=== PATIENT | male | born 1985 ===

== ENCOUNTER 2017-10-19 07:03 | Inpatient (IN) | payer OTHER ==
[~2017-10-19] VITALS: Ht 167.6 cm; Wt 76.7 kg
[2017-10-19] VITALS (12 sets, daily range): BP systolic 101–111; BP diastolic 52–72
[~2017-10-19 07:03] MED LIST: Dexamethasone 20mg/5ml IVP ONE; ceFAZolin sod 1 GM in NS 55 ML IVPB ONE
[2017-10-19] MEDS ORDERED: NKM (07:19)
[2017-10-19] MEDS ORDERED: LR 1000ml 1,000 ML IVLG SCH (09:23)
--- NOTE | 2017-10-19 09:25 | Anethesia Preoperative Eval ---
Anesthesia Pre-op PMH/ROS General Date of Evaluation: Oct 19, 2017 Time of Evaluation: 10:14 Anesthesiologist: Bernadette ASA Score: ASA 1 Mallampati Score Class I : Soft palate, uvula, fauces, pillars visible Class II: Soft palate, uvula, fauces visible Class III: Soft palate, base of uvula visible Class IV: Only hard plate visible Mallampati Classification: Class I Surgeon: Bernabe Diagnosis: Back Pain Surgical Procedure: L5-S1 Microdiscectomy, Decompression Anesthesia History: none Family History: no anesthesia problems Allergies: Coded Allergies: No Known Allergies (Unverified , 10/18/17) Medications: see eMAR Past Medical History PSxH Narrative: R Femur ORIF Anesthesia Pre-op Phys. Exam Physician Exam Last Vital Signs Date Time Temp Pulse Resp B/P (MAP) Pulse Ox O2 Delivery O2 Flow Rate FiO2 10/19/17 07:24 97.3 68 20 107/72 (84) 100 97.3 10/19/17 07:20 Room Air Constitutional: NAD Neurologic: CN 2-12 intact Cardiovascular: RRR Respiratory: CTA Gastrointestinal: S/NT/ND Airway Exam Mallampati Score: Class I MO: full ROM: full Teeth: intact Anesthesia Pre-op A/P Risk Assessment & Plan Assessment: ASA 1 Plan: GA, BIS, GlideScope Pre-Antibiotics Dru Grams Ancef IV Given Within 1 Hr of Incision: Yes Time Given: 10:41 Keyshawn Fleming MD Oct 19, 2017 09:25
[2017-10-19] MEDS ORDERED: DiphenhydrAMINE 50mg/ml Inj IVP PRN (09:30)
[2017-10-19] MEDS ORDERED: Metoclopramide 10mg/2ml Inj IVP PRN (09:30)
[2017-10-19] MEDS ORDERED: oxyCODONE HCL/Acetaminophen 5/325mg ORAL PRN (09:30)
[2017-10-19] MEDS ORDERED: HYDROcodone/Acetamin 7.5/325 tab ORAL PRN (09:30)
[2017-10-19] MEDS ORDERED: Ketorolac 30mg Inj IV PRN ×2 (09:30)
[2017-10-19] MEDS ORDERED: Hydromorphone 0.5mg/0.5ml inj IVP PRN (09:30)
[2017-10-19] MEDS ORDERED: Norco 5mg/325mg tab ORAL PRN (09:30)
[2017-10-19] MEDS ORDERED: Acetaminophen (Non formulary) 100 ML IV ONE (09:30)
[2017-10-19] MEDS ORDERED: fentaNYL 100 mcg/2 mL IV PRN (09:30)
[2017-10-19] MEDS ORDERED: LORazepam Inj 2mg/ml 1ml IV PRN (09:30)
[2017-10-19] MEDS ORDERED: Labetalol 5mg/ml 20ml vial IV PRN (09:30)
[2017-10-19] MEDS ORDERED: Midazolam 2mg/2ml Inj IVP PRN (09:30)
[2017-10-19] MEDS ORDERED: Atropine Inj 1mg/10ml Syr IV PRN (09:30)
[2017-10-19] MEDS ORDERED: Lidocaine 1% MPF 10mg/ml 5ml ONE (09:31)
[2017-10-19] MEDS ORDERED: Sodium Chloride 10ml vial INJ ONE (09:31)
[2017-10-19] MEDS ORDERED: Lidocaine 1% Plain 30 ml INJ ONE ×2 (09:36→12:39)
[2017-10-19] MEDS ORDERED: fentaNYL 100 mcg/2 mL IV ONE ×2 (09:36→12:02)
[2017-10-19] MEDS ORDERED: LR 1000ml ONE (10:00)
[2017-10-19] MEDS ORDERED: Sterile Water Irrig 1000ml IRRIG ONE (10:00)
[2017-10-19] MEDS ORDERED: Propofol 1,000mg/ 100ml btl IV ONE (10:00)
[2017-10-19] MEDS ORDERED: NS Irrig 1000ml ONE (10:00)
[2017-10-19] MEDS ORDERED: Labetalol 5mg/ml 20ml vial IV ONE (10:00)
[2017-10-19] MEDS ORDERED: Neostigmine 1mg/ml 10ml Inj ONE (10:00)
[2017-10-19] MEDS ORDERED: Zemuron 50mg/5ml Inj IV ONE (10:10)
[2017-10-19] MEDS ORDERED: Bacitracin 50000 Units Vial ONE (10:17)
[2017-10-19] MEDS ORDERED: Gelfoam Size TOPIC ONE (10:17)
[2017-10-19] MEDS ORDERED: Thrombin 5000 units TOPIC ONE ×2 (10:17→10:57)
--- NOTE | 2017-10-19 10:23 | Pre-Procedure Note/Attestation ---
Pre-Procedure Note/Attestation Complete Prior to Procedure Planned Procedure: not applicable Procedure Narrative: Microdiscectomy L5-S1 Indications for Procedure Pre-Operative Diagnosis: trauma HNP Attestation I attest that I discussed the nature of the procedure; its benefits; risks and complications; and alternatives (and the risks and benefits of such alternatives ), prior to the procedure, with the patient (or the patient's legal solar sales representative). I attest that, if there was a reasonable possibility of needing a blood transfusion, the patient (or the patient's legal solar sales representative) was given the [facility] standardized written summary, pursuant to the Ruben Tere Blood Safety Act ([place] Health and Safety Code # 1645, as amended). I attest that I re-evaluated the patient just prior to the surgery and that there has been no change in the patient's H&P, except as documented below: AG BOJORQUEZ Oct 19, 2017 10:23
[2017-10-19] MEDS ORDERED: Chloraseptic Spray 20mL Bottle ORAL PRN (10:30)
[2017-10-19] MEDS ORDERED: Morphine Sulfate 4mg/ml Inj (IV USE ONLY) IM PRN (10:30)
[2017-10-19] MEDS ORDERED: HYDROmorphone 1mg/ml Carpuject SUBQ PRN (10:30)
[2017-10-19] MEDS ORDERED: HYDROcodone/Acetamin 10/325 tab ORAL PRN (10:30)
--- NOTE | 2017-10-19 11:32 | Immediate Post-Op Evaluation ---
Immediate Post-Op Evalulation Immediate Post-Op Evalulation Procedure: L5-S1 Microdiscectomy, Decompression Date of Evaluation: Oct 19, 2017 Time of Evaluation: 12:49 IV Fluids: 900 LR Blood Products: 0 Estimated Blood Loss: 15 Urinary Output: 0 Blood Pressure Systolic: 110 Blood Pressure Diastolic: 63 Pulse Rate: 75 Respiratory Rate: 18 O2 Sat by Pulse Oximetry: 100 Temperature (Fahrenheit): 97 Pain Score (1-10): 3 Nausea: No Vomiting: No Complications 0 Patient Status: awake, reacts, patent, extubated, none Hydration Status: adequate Dru Grams Ancef IV Given Within 1 Hr of Incision: Yes Time Given: 10:41 Keyshawn Fleming MD Oct 19, 2017 11:32
--- NOTE | 2017-10-19 11:32 | 48 Hour Post Anesthesia Eval ---
Post Anesthesia Evaluation Procedure: L5-S1 Microdiscectomy, Decompression Date of Evaluation: Oct 19, 2017 Time of Evaluation: 14:53 Blood Pressure Systolic: 113 0: 71 Pulse Rate: 67 Respiratory Rate: 18 Temperature (Fahrenheit): 98.2 O2 Sat by Pulse Oximetry: 100 Airway: patent Nausea: No Vomiting: No Pain Intensity: 2 Hydration Status: adequate Cardiopulmonary Status: Stable Mental Status/LOC: patient returned to baseline Follow-up Care/Observations: 0 Post-Anesthesia Complications: 0 Follow-up care needed: ready to discharge Keyshawn Fleming MD Oct 19, 2017 11:32
[2017-10-19] MEDS ORDERED: Glycopyrrolate 0.2mg/ml 1ml Vial ONE (12:04)
--- NOTE | 2017-10-19 12:05 | Brief Operative Note ---
Immediate Post Operative Note Operative Note Pre-op Diagnosis: trauma HNP Procedure: L5-S1 microdiscectomy xray local xray Post-op Diagnosis: same as pre-op Findings: consistent w/pre-op dx studies Surgeon: Bernabe PAINTER Cushion Mat Maker: Roxann PEREZ Anesthesiologist: Bernadette PAINTER Anesthesia: general Specimen: yes Complications: none Condition: stable Fluids: anesthesia Estimated Blood Loss: minimal Drains: none Implant(s) used?: No AG BOJORQUEZ Oct 19, 2017 12:05
[2017-10-19] MEDS ORDERED: Naloxone 0.4mg/ml Inj ONE (12:07)
[2017-10-19] MEDS ORDERED: D5 1/2NS 1,000 ML IV SCH (13:39)
--- NOTE | 2017-10-19 16:09 | Diagnostic Imaging Report ---
Indication: Back pain Technique: Intraoperative fluoroscopic image from spinal surgery. Operating surgeon: Bernabe Total fluoroscopy time: 2.5 seconds Total fluoroscopy dose: 0.59 mGy Comparison: None Findings: Single intraoperative fluoroscopic image submitted for archival the PACS. Image demonstrates surgical material projecting over the L5-S1 disc space posteriorly. Impression: Intraoperative fluoroscopic image from spinal surgery. Please see operative report.
[2017-10-19] MEDS ORDERED: NORCO 10-325 T1 EACH ORAL (16:26)
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
[2017-10-19] MEDS ORDERED: ceFAZolin sod 1 GM in D5W 55 ML IV SCH (18:30)
[2017-10-19] MEDS ORDERED: Tubing IV Secondary IV ONE (18:42)
[2017-10-19] MEDS ORDERED: D5 1/2NS 1000ml IV ONE (18:42)
--- NOTE | 2017-10-19 23:15 | Operative Note - Dictated ---
DATE OF OPERATION: 10/19/2017 PRIMARY SURGEON: Gio Kidd, Ph.D., M.D. OUTCOMES ANALYST: ANA Meade. ANESTHESIOLOGIST: Keyshawn Fleming M.D. ANESTHESIA: General with intubation. ESTIMATED BLOOD LOSS: Minimal. ADMITTING/PREOPERATIVE DIAGNOSIS: L5-S1 herniated nucleus pulposus. POSTOPERATIVE DIAGNOSIS: L5-S1 herniated nucleus pulposus. INTRAOPERATIVE OBSERVATION: Herniated nucleus polyposis L5-S1. SPECIMEN: Disc fragment L5-S1 to pathology. OPERATIVE PROCEDURE: Microdiskectomy L5-S1, high-powered magnification dissection, intraoperative x-rays interpreted by surgeon, local anesthetic 1% lidocaine applied local anesthetic. POSTOPERATIVE CONDITION: Good/stable. DESCRIPTION OF PROCEDURES: The patient was brought to the operating room and in the supine position, general anesthesia with intubation was induced. IV antibiotics, IV Decadron were administered 30 minutes prior to incision time. Back was sterilely prepped. A spinal needle was percutaneously placed under sterile conditions into the subcutaneous tissue only. A cross-table image was obtained under sterile conditions demonstrating the correct level for further dissection and/incision placement. Level was marked. Needle removed. Back re-sterilely prepped and draped free in usual sterile fashion. A midline longitudinal incision over the appropriate interval was sharply placed through dermis and epidermis. Electrocautery dissection was carried through the subcutaneous tissue to the level of the lumbodorsal fascia that was incised right of midline only and over the lamina of inferior L5 superior S1. Marker was placed. Posterior to the posterior longitudinal ligament, a cross-table image was obtained under sterile conditions, interpreted by surgeons demonstrating L5-S1 is the correct interval. Position marker recorded and marker removed. Retractors placed. Hemilaminotomy right inferior L5 with care taken to preserve the integrity of the pars interarticularis. Ligament flavum excised. Dissection carried lateral to the exiting nerve root and dural tube with identification of a large subligamentous herniated nucleus pulposus. Annulotomy was performed. Microdiscectomy for maximum posterior anterior dimension not exceeding 11 mm, medial lateral not exceeding 5 mm, lateral medial not exceeding 10 mm. No gross bleeding from the disc space . Fragments of disc sent to pathology. Disk space irrigated with antibiotic-containing saline. No further fragments identified. Bipolar electrocautery was used sparingly for epidural bleeding. Exploration revealed no cerebrospinal fluid leakage/dural tears. Wound was copiously irrigated with antibiotic-containing saline. FloSeal applied. Reapproximation sequentially of lumbodorsal fascia, subcutaneous tissue, dermis, and epidermis. Surgical strips applied after local anesthetic, 1% lidocaine without epinephrine was applied at the dermal/subcutaneous interval as local anesthetic to bilateral lateral aspects of the wound. Sterile bandage applied and maintained in place with tape. The patient was carefully turned from the prone to the supine position on the transport bed where he was awakened, extubated in the operating room, and transported to postoperative recovery in good stable condition. Gio Kidd M.D. DR: IRMA JOB#: [id number] CC:
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
[2017-10-20 12:41] VITALS: BP 105/64
--- NOTE | 2017-10-20 12:41 | 48 Hour Post Anesthesia Eval ---
Post Anesthesia Evaluation Procedure: L5-S1 Microdiscectomy, Decompression Date of Evaluation: Oct 19, 2017 Time of Evaluation: 16:00 Blood Pressure Systolic: 105 0: 64 Pulse Rate: 59 Respiratory Rate: 19 Temperature (Fahrenheit): 98.1 O2 Sat by Pulse Oximetry: 100 Airway: patent Nausea: No Vomiting: No Pain Intensity: 0 Hydration Status: adequate Mental Status/LOC: patient returned to baseline Post-Anesthesia Complications: none Follow-up care needed: N/A Dana Flores M.D. Oct 20, 2017 12:41
== END 2017-10-19 18:43 | disposition home or self-care (01) | DRG 520 ==
LOC: SUR 07:03 → 3E 13:32
PROC: 0SB40ZZ Excision of Lumbosacral Disc, Open Approach (ICD-10-PCS; principal; 2017-10-19 10:00)
DX: M51.27 Other intervertebral disc displacement, lumbosacral region (principal); V89.2XXS Person injured in unspecified motor-vehicle accident, traffic, sequela
CPT/HCPCS: 72020; 76001; 87081; J2405; J2710